=== PATIENT | male | born 1985 | race Hispanic/Latino ===

== ENCOUNTER 2018-05-15 02:42 | Emergency (ER) | payer MEDICAID, OTHER ==
[2018-05-15 02:54] VITALS: BP 141/86
[2018-05-15] MEDS ORDERED: NACL 0.9% 1000 ML 1,000 ML IV ONE (03:00)
[2018-05-15] MEDS ORDERED: CLEOCIN 900 MG/50 mL 900 MG/50 ML BAG IV ONE (03:00)
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
[2018-05-15 03:24] LABS: Basophils # (Auto) 0.1 K/mm3 (0.0-0.1); Basophils % (Auto) 0.5 % (0.0-1.8); Eosinophils # (Auto) 0.1 K/mm3 (0.0-0.4); Eosinophils % (Auto) 0.5 % (0.0-4.3); Hematocrit 46.7 % (35.5-45.6); Hemoglobin 15.8 gm/dl (11.8-15.2); Lymphocytes % (Auto) 11.6 % (13.4-35.0); Mean Corpuscular HGB Conc 34 % (32-34); Mean Corpuscular Volume 94 fl (84-94); Monocytes # (Auto) 1.6 K/mm3 (0.0-0.8); Monocytes % (Auto) 8.9 % (0.0-7.3); Platelet Count 294 K/mm3 (140-440); Red Cell Distribution Width 13.2 % (13.2-15.2)
[2018-05-15 03:43] LABS: BUN/Creatinine Ratio 13; Blood Urea Nitrogen 10 mg/dL (9-20); Calcium 9.4 mg/dL (8.4-10.2); Hemolysis Index 10
--- NOTE | 2018-05-15 03:44 | XRay Report ---
FINAL REPORT PROCEDURE: XR ELBOW 3+V RT TECHNIQUE: RIGHT elbow radiographs, including AP, lateral, and oblique views. CPT 22651 HISTORY: pain swelling fever COMPARISON: No prior studies are available for comparison. FINDINGS: Fracture (s) and/or Dislocation(s): None . Alignment: Normal . Joint space(s): Normal . Soft tissues: Normal . Bone mineralization: Normal . Foreign bodies: None . IMPRESSION: Normal Examination
[2018-05-15] MEDS ORDERED: TORADOL IV ONE (04:09)
== END 2018-05-15 04:50 | disposition left against medical advice (07) ==
LOC: ED 02:42
DX: L02.413 Cutaneous abscess of right upper limb (principal); F17.200 Nicotine dependence, unspecified, uncomplicated
CPT/HCPCS: 10060; 36415; 73080; 80048; 85025; 86140; 87040; 96365; 96375; 99284; J1885; J7030

== ENCOUNTER 2021-06-01 12:50 | Inpatient (IN) | payer SELFPAY ==
[~2021-06-01 12:50] MED LIST: ETOMIDATE 20 MG/10 ML INJ IV ONE; MIDAZOLAM 5 MG/5 ML INJ MDV IV ONE; ROCURONIUM 50 MG/5 ML INJ IV ONE; SUCCINYLCHOLINE CHLORIDE 200 MG/10 ML INJ MDV ONE
[2021-06-01] MEDS ORDERED: ZIPRASIDONE MESYLATE 20 MG VIAL IM ONE ×3 (13:00→18:10)
[2021-06-01] MEDS ORDERED: LORazepam 2 MG/ML VIAL ONE (13:02)
[2021-06-01] MEDS ORDERED: diphenhydrAMINE 50 MG/ML VIAL ONE (13:10)
[2021-06-01] MEDS ORDERED: SODIUM CHLORIDE 0.9% 1000 ML 1,000 ML IV ONE ×2 (13:14→13:47)
[2021-06-01] MEDS ORDERED: ETOMIDATE 20 MG/10 ML INJ IV ONE (13:24)
[2021-06-01] MEDS ORDERED: MIDAZOLAM 5 MG/5 ML INJ MDV IV NR (13:27)
[2021-06-01] MEDS ORDERED: SUCCINYLCHOLINE CHLORIDE 200 MG/10 ML INJ MDV IV ONE (13:30)
[2021-06-01] MEDS ORDERED: MINERAL OIL/PETROLATUM, WHITE OPHTH OINT 3.5 GM OU PRN (13:45)
[2021-06-01] MEDS ORDERED: LIP THERAPY VASELINE TP PRN (13:45)
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
[2021-06-01] MEDS ORDERED: diphenhydrAMINE 50 MG/ML VIAL IV ONE (14:10)
[2021-06-01] MEDS ORDERED: LORazepam 2 MG/ML VIAL IV ONE (14:10)
[2021-06-01 14:41] LABS: Basophils # (Auto) 0.1 K/mm3 (0.0-0.1); Basophils % (Auto) 0.5 % (0.0-1.8); Eosinophils # (Auto) 0.1 K/mm3 (0.0-0.4); Eosinophils % (Auto) 0.5 % (0.0-4.3); Hematocrit 43.4 % (35.5-45.6); Hemoglobin 14.4 gm/dl (11.8-15.2); Lymphocytes % (Auto) 16.9 % (13.4-35.0); Mean Corpuscular HGB Conc 33 % (32-34); Mean Corpuscular Volume 93 fl (84-94); Monocytes # (Auto) 0.8 K/mm3 (0.0-0.8); Monocytes % (Auto) 6.4 % (0.0-7.3); Platelet Count 261 K/mm3 (140-440); Red Blood Count 4.67 M/mm3 (3.65-5.03); Red Cell Distribution Width 13.9 % (13.2-15.2)
[2021-06-01 14:59] LABS: BUN/Creatinine Ratio 18; Blood Urea Nitrogen 18 mg/dL (9-20); Calcium 9.3 mg/dL (8.4-10.2); Hemolysis Index 3
[2021-06-01 15:03] LABS: Albumin 4.9 g/dL (3.9-5); Bilirubin,Direct 0.3 mg/dL (0-0.2)
[2021-06-01] MEDS: FAMOTIDINE 20 MG/2 ML INJ IV SCH ×2 (15:05→22:12)
[2021-06-01 15:08] LABS: ABG Base Excess -3.6 mmol/L (-2.0-3.0); ABG HCO3 22.4 mmol/L (20.0-26.0); ABG Methemoglobin 0.5 % (0.0-1.5); ABG Oxygen Saturation 99.6 % (95.0-99.0); ABG PCO2 43.8 mm Hg; ABG PH 7.327 pH Units (7.350-7.450)
[2021-06-01 15:14] LABS: ABG PO2 464.3 mm Hg (80.0-90.0)
[2021-06-01 15:15] LABS: Bilirubin,Urine NEG (Negative); Blood,Urine NEG (Negative); Color,Urine Yellow (Yellow); Hyaline Casts,Urine 1 /LPF; Mucus,Urine 1+ /HPF
[2021-06-01 15:22] LABS: Benzodiazepines Screen,Urine Negative; Cannabinoid Screen,Urine Negative; Cocaine Screen,Urine Negative; Methadone Screen,Urine Negative; Opiate Screen,Urine Negative
[2021-06-01 15:37] LABS: Amphetamine Screen,Urine Positive
--- NOTE | 2021-06-01 15:49 | History and Physical Report ---
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 Patient is intubated and on ventilatory support at the time my evaluation and is unable to provide history. Patient history taken EMS staff, as well as ED staff, and [employer]. Patient was found down and unresponsive in his vehicle by [employer] and was subsequent transported to [facility] for further care and evaluation of the aforementioned symptoms. The patient was seen and evaluated emergency department. All lab and imaging studies reviewed. Patient was found to be encephalopathic with acute hypoxemic respiratory failure and deemed unable to protect his airway and was subsequently intubated in the emergency department for airway protection. No further history is obtainable. No prior admission for review. All medication listed at time of admission has been reconciled. No reports of fever, chills, chest pain, palpitation or productive cough, skin rash or recent contact, known exposure to COVID-19. Critical care team consulted in ED. Past History Past Medical History: other (See HPI) Past Surgical History: bowel surgery Social history: single, smoking Family history: no significant family history, other (Reviewed) Medications and Allergies Allergies Allergy/AdvReac Type Severity Reaction Status Date / Time No Known Allergies Allergy Verified 06/01/21 12:54 Home Medications Medication Instructions Recorded Confirmed Last Taken Type Clindamycin [Clindamycin CAP] 300 mg PO Q6H 10 Days #40 capsule 05/15/18 Unknown Rx traMADoL [Ultram] 50 mg PO Q6HR PRN #12 tablet 05/15/18 Unknown Rx Active Meds: Active Medications Famotidine (Famotidine 20 Mg/2 Ml Inj) 20 mg IV BID HEATHER Last Admin: 06/01/21 15:05 Dose: 20 mg Hydrophilic Ointment (Lip Therapy Vaseline) 1 applic TP Q2HR PRN PRN Reason: Dry Lips Propofol (Diprivan 10 Mg/Ml) 1,000 mg in 100 mls @ 1.905 mls/hr IV TITR HEATHER; Protocol Last Titration: 06/01/21 15:05 Dose: 25 mcg/kg/min, 9.525 mls/hr MIDAZOLAM/NS Drip 100mg/100ml (Midazolam/Ns Drip 100mg/100ml) 100 mg in 100 mls @ 1 mls/hr IV TITR HEATHER; Protocol Midazolam HCl (Midazolam 5 Mg/5 Ml Inj Mdv) 5 mg IV ONCE NR Stop: 06/02/21 13:26 Last Admin: 06/01/21 13:27 Dose: 5 mg Multi-Ingred Cream/Lotion/Oil/Oint (Mineral Oil/Petrolatum, White Ophth Oint 3.5 Gm) 1 applic OU Q4HR PRN PRN Reason: Dry Eye(s) Senna/Docusate Sodium (Sennosides/Docusate Sodium 8.6/50 Mg Tab) 1 tab FEEDTUBE BID HEATHER Review of Systems ROS unobtainable: due to endotracheal tube, due to mental status Exam - Constitutional Vitals: Temp Pulse Resp BP Pulse Ox 105 H 21 121/87 100 06/01/21 14:02 06/01/21 15:29 06/01/21 15:29 06/01/21 15:29 General appearance: Present: mild distress - EENT Eyes: Present: miosis ENT: hearing decreased - Neck Neck: Present: supple, normal ROM - Respiratory Respiratory: bilateral: diminished - Cardiovascular Heart Sounds: Present: S1 & S2. Absent: rub, click - Extremities Extremities: pulses symmetrical, No edema Peripheral Pulses: within normal limits - Abdominal General gastrointestinal: Present: soft, non-tender, non-distended, normal bowel sounds Male genitourinary: Present: normal - Integumentary Integumentary: Present: dry, clammy, decreased turgor - Musculoskeletal Musculoskeletal: generalized weakness - Psychiatric Psychiatric: no appropriate mood/affect, no intact judgment & insight, no memory intact, agitated - Neurologic Neurologic: CNII-XII intact, no focal deficits, moves all extremities, no gait normal Results - Labs CBC & Chem 7: 06/01/21 14:23 06/01/21 14:23 Labs: Abnormal lab results 06/01/21 06/01/21 06/01/21 Range/Units 13:56 14:23 14:23 WBC 12.1 H (4.5-11.0) K/mm3 Seg Neutrophils % 75.7 H (40.0-70.0) % Seg Neutrophils # 9.1 H (1.8-7.7) K/mm3 ABG pH 7.327 L (7.350-7.450) pH Units ABG pO2 464.3 H (80.0-90.0) mm Hg ABG O2 Saturation 99.6 H (95.0-99.0) % ABG Base Excess -3.6 L (-2.0-3.0) mmol/L Carbon Dioxide 21 L (22-30) mmol/L Glucose 106 H (75-100) mg/dL Direct Bilirubin (0-0.2) mg/dL AST (5-40) units/L ALT (7-56) units/L Salicylates (2.8-20.0) mg/dL Acetaminophen (10.0-30.0) ug/mL 06/01/21 06/01/21 06/01/21 Range/Units 14:23 14:23 14:23 WBC (4.5-11.0) K/mm3 Seg Neutrophils % (40.0-70.0) % Seg Neutrophils # (1.8-7.7) K/mm3 ABG pH (7.350-7.450) pH Units ABG pO2 (80.0-90.0) mm Hg ABG O2 Saturation (95.0-99.0) % ABG Base Excess (-2.0-3.0) mmol/L Carbon Dioxide (22-30) mmol/L Glucose (75-100) mg/dL Direct Bilirubin 0.3 H (0-0.2) mg/dL AST 80 H (5-40) units/L ALT 159 H (7-56) units/L Salicylates < 0.3 L (2.8-20.0) mg/dL Acetaminophen 5.0 L (10.0-30.0) ug/mL Assessment and Plan - Patient Problems (1) Acute respiratory failure Current Visit: Yes Status: Acute Plan to address problem: Patient intubated and on ventilatory support. Wean vent as tolerated, sedation holiday in a.m., spontaneous breathing trial in a.m. Critical care team consulted. The high probability of a clinically significant, sudden or life threatening deterioration of the [neuro, pulmonary] system(s) required my full and direct attention, intervention and personal management. The aggregate critical care time was [65] minutes. This time is in addition to time spent performing reported procedures but includes the following: [x] Data Review and interpretation [x] Patient assessment and monitoring of vital signs [x] Documentation [x] Medication orders and management (2) Metabolic encephalopathy Current Visit: Yes Status: Acute Plan to address problem: CT head, neuro check, seizure precaution, aspiration precautions, supportive care. (3) Methamphetamine intoxication Current Visit: Yes Status: Acute Plan to address problem: Supportive care, IV fluid resuscitation therapy, continue medical management. (4) DVT prophylaxis Current Visit: Yes Status: Acute Plan to address problem: SCD to bilateral lower extremities while in bed (5) Advance care planning Current Visit: Yes Status: Acute Plan to address problem: Disease education data, care plan discussed, diagnoses discussed, prognosis discussed, patient is full code, +30 minutes.
[2021-06-01] MEDS ORDERED: MORPHINE 2 MG/1 ML INJ IV PRN (15:52)
[2021-06-01] MEDS ORDERED: HYDROmorphone 1 MG/1 ML INJ IV PRN (15:52)
[2021-06-01] MEDS ORDERED: ACETAMINOPHEN 650 MG RECT SUPP PR PRN (15:52)
[2021-06-01] MEDS ORDERED: MIDAZOLAM/NS Drip 100mg/100ml 100 MG/100 ML BAG IV SCH (16:00)
--- NOTE | 2021-06-01 16:31 | XRay Report ---
CHEST 1 VIEW 1525 hours INDICATION: ETT placement. COMPARISON: None FINDINGS: Support devices: Endotracheal tube is in adequate position terminating 3.2 cm superior to the john. The nasogastric tube terminates in the left lower lobe bronchus. Replacement is recommended. Heart: Within normal limits. Lungs/Pleura: No acute air space or interstitial disease. Additional findings: None. IMPRESSION: Adequate placement of the endotracheal tube. The nasogastric tube terminates in the left lower lobe bronchus. Replacement is recommended. ABDOMEN 1 VIEW(S) 1545 hours INDICATION / CLINICAL INFORMATION: ETT placement. COMPARISON: None available. FINDINGS: TUBES / LINES: The nasogastric tube has been repositioned and is now coiled in the fundus of the stom ach with the tip near the GE junction. BOWEL GAS PATTERN: No significant abnormality. FREE AIR / EXTRALUMINAL GAS: None seen. ADDITIONAL FINDINGS: No significant additional findings. IMPRESSION: The nasogastric tube has been repositioned and now terminates in the fundus of the stomach. No acute process in the abdomen. Signer Name: Ramone Grace Jr, MD Signed: 06/01/2021 4:27 PM Workstation Name: [email or web address] [email or web address]
--- NOTE | 2021-06-01 16:47 | Cat Scan Report ---
CT BRAIN: 06/01/2021 INDICATION / CLINICAL INFORMATION: AMS. COMPARISON: None available. FINDINGS: BRAIN/INTRACRANIAL STRUCTURES: Unenhanced CT images of the brain demonstrate no evidence of acute abn ormality. Ventricles and sulci are normal in size and shape. There is no evidence of acute large vessel territory ischemic injury, hemorrhage, or mass. There are no abnormal extra-axial fluid collections. EXTRACRANIAL STRUCTURES: Unremarkable. IMPRESSION: No acute abnormality. All CT scans at this location are performed using dose reduction to ALARA by means of automated expos ure control. Signer Name: Julien Rainey MD Signed: 06/01/2021 4:42 PM Workstation Name: [id number]
[2021-06-01] MEDS: SENNOSIDES/DOCUSATE SODIUM 8.6/50 MG TAB FEEDTUBE SCH ×2 (19:11→22:12)
[2021-06-02 04:58] LABS: Basophils # (Auto) 0.1 K/mm3 (0.0-0.1); Basophils % (Auto) 0.5 % (0.0-1.8); Eosinophils # (Auto) 0.1 K/mm3 (0.0-0.4); Eosinophils % (Auto) 0.9 % (0.0-4.3); Hematocrit 43.1 % (35.5-45.6); Hemoglobin 14.3 gm/dl (11.8-15.2); Lymphocytes # (Auto) 2.9 K/mm3 (1.2-5.4); Mean Corpuscular HGB Conc 33 % (32-34); Mean Corpuscular Volume 93 fl (84-94); Monocytes # (Auto) 1.3 K/mm3 (0.0-0.8); Monocytes % (Auto) 11.4 % (0.0-7.3); Platelet Count 241 K/mm3 (140-440); Red Blood Count 4.65 M/mm3 (3.65-5.03); Red Cell Distribution Width 14.3 % (13.2-15.2)
[2021-06-02 05:09] LABS: BUN/Creatinine Ratio 18; Blood Urea Nitrogen 14 mg/dL (9-20); Calcium 8.5 mg/dL (8.4-10.2); Hemolysis Index 14
[2021-06-02 05:42] LABS: ABG Base Excess -2.1 mmol/L (-2.0-3.0); ABG HCO3 21.9 mmol/L (20.0-26.0); ABG Methemoglobin 0.6 % (0.0-1.5); ABG Oxygen Saturation 99.1 % (95.0-99.0); ABG PCO2 35.3 mm Hg; ABG PH 7.411 pH Units (7.350-7.450); ABG PO2 179.6 mm Hg (80.0-90.0)
[2021-06-02] MEDS ORDERED: SODIUM CHLORIDE 0.9% 250ML 250 ML IV ONE (06:13)
[2021-06-02] MEDS ORDERED: SODIUM CHLORIDE 0.9% 1000 ML 1,000 ML IV ONE (06:14)
[2021-06-02] MEDS ORDERED: HALOPERIDOL LACTATE 5 MG/1 ML INJ ONE (09:29)
[2021-06-02] MEDS ORDERED: HALOPERIDOL LACTATE 5 MG/1 ML INJ IV ONE (09:51)
[2021-06-02] MEDS: SENNOSIDES/DOCUSATE SODIUM 8.6/50 MG TAB FEEDTUBE SCH (10:11)
--- NOTE | 2021-06-02 10:12 | Electrocardiograph Report ---
[facility] Test Date: 2021-06-01 Test Time: 17:15:16 Pat Name: ROSA HYDE Department: Room: [place] [address] Gender: M Manager Revenue: SUN : 1985 Requested By: CHASITY GONZALEZ Order Number: [id number] Reading MD: Tiffanie Moreno Measurements Intervals [place] Rate: 83 P: 63 UT: 110 QRS: 74 QRSD: 87 T: 43 QT: 395 QTc: 464 Interpretive Statements Sinus rhythm No previous ECG available for comparison Electronically Signed On 06-02-2021 10:12:33 EST by Tiffanie Moreno
[2021-06-02] MEDS: FAMOTIDINE 20 MG/2 ML INJ IV SCH (10:30)
--- NOTE | 2021-06-02 12:19 | Progress Note ---
Assessment and Plan Assessment and plan: 35 YO Male with Methamphetamine Dependence, Nicotine Dependence presents ED for evaluation. Patient is intubated and on ventilatory support at the time my evaluation and is unable to provide history. Patient history taken EMS staff, as well as ED staff, and [facility] [employer]. Patient was found down and unresponsive in his vehicle by [facility] [employer] and was subsequent transported to [facility] for further care and evaluation of the aforementioned symptoms. The patient was seen and evaluated emergency department. All lab and imaging studies reviewed. Patient was found to be encephalopathic with acute hypoxemic respiratory failure and deemed unable to protect his airway and was subsequently intubated in the emergency department for airway protection. No further history is obtainable. No prior admission for review. All medication listed at time of admission has been reconciled. No reports of fever, chills, chest pain, palpitation or productive cough, skin rash or recent contact, known exposure to COVID-19. Critical care team consulted in ED. Acute hypoxic respiratory failure secondary to stupor Metabolic encephalopathy Methamphetamine intoxication Metabolic acidosis Systemic inflammatory response syndrome without organ dysfunction Hypoglycemia Mild elevated Liver Enzymes Plan We will begin weaning process from the ventilator. CT of the head was unremarkable Repeat KUB shows repositioning of NG tube with appropriate placement Continue empiric antibiotic coverage for possible suspected aspiration Counseling on substance abuse 1 more awake Start on D5 NS, and if unable to extubate will start tube feed We will check thyroid studies DVT and GI prophylaxis Plan Will Discuss with Pulmonary physician The high probability of a clinically significant, sudden or life threatening deterioration of the [neuro, pulmonary] system(s) required my full and direct attention, intervention and personal management. The aggregate critical care time was [35] minutes. This time is in addition to time spent performing reported procedures but includes the following: [x] Data Review and interpretation [x] Patient assessment and monitoring of vital signs [x] Documentation [x] Medication orders and management History Interval history: Patient seen and examined this morning remains on the ventilator was agitated initially requiring Haldol. Hospitalist Physical - Physical exam Narrative exam: VITAL SIGNS: Reviewed. GENERAL: The patient appears normally developed, intubated, Disheveled, Vital signs as documented. HEAD: No signs of head trauma. EYES: Pupils are equal. Extraocular motions intact. EARS: Hearing grossly intact. MOUTH: Oropharynx is normal. ETT tube NECK: No adenopathy, no JVD. CHEST: Chest with clear breath sounds bilaterally. No wheezes, rales, or rhonchi. CARDIAC: Regular rate and rhythm. S1 and S2, without murmurs, gallops, or rubs. VASCULAR: No Edema. Peripheral pulses normal and equal in all extremities. ABDOMEN: Soft, non tender and non distended. No rebound or guarding, and no masses palpated. Bowel Sounds normal. MUSCULOSKELETAL: Good range of motion of all major joints. Extremities without clubbing, cyanosis or edema. NEUROLOGIC EXAM: sedated, No focal sensory or strength deficits. PSYCHIATRIC: Mood unable to examine SKIN: detail exam as documented in skin assessment - Constitutional Vitals: Temp Pulse Resp BP Pulse Ox 97.5 F L 103 H 20 93/43 98 06/01/21 19:20 06/02/21 10:00 06/02/21 10:00 06/02/21 10:00 06/02/21 10:00 General appearance: Present: mild distress Results - Labs CBC & Chem 7: 06/02/21 04:38 06/02/21 04:38 Labs: Laboratory Last Values WBC 11.2 K/mm3 (4.5-11.0) H 06/02/21 04:38 RBC 4.65 M/mm3 (3.65-5.03) 06/02/21 04:38 Hgb 14.3 gm/dl (11.8-15.2) 06/02/21 04:38 Hct 43.1 % (35.5-45.6) 06/02/21 04:38 MCV 93 fl (84-94) 06/02/21 04:38 MCH 31 pg (28-32) 06/02/21 04:38 MCHC 33 % (32-34) 06/02/21 04:38 RDW 14.3 % (13.2-15.2) 06/02/21 04:38 Plt Count 241 K/mm3 (140-440) 06/02/21 04:38 Lymph % (Auto) 26.0 % (13.4-35.0) 06/02/21 04:38 [place] % (Auto) 11.4 % (0.0-7.3) H 06/02/21 04:38 Eos % (Auto) 0.9 % (0.0-4.3) 06/02/21 04:38 Baso % (Auto) 0.5 % (0.0-1.8) 06/02/21 04:38 Lymph # (Auto) 2.9 K/mm3 (1.2-5.4) 06/02/21 04:38 [place] # (Auto) 1.3 K/mm3 (0.0-0.8) H 06/02/21 04:38 Eos # (Auto) 0.1 K/mm3 (0.0-0.4) 06/02/21 04:38 Baso # (Auto) 0.1 K/mm3 (0.0-0.1) 06/02/21 04:38 Seg Neutrophils % 61.2 % (40.0-70.0) 06/02/21 04:38 Seg Neutrophils # 6.9 K/mm3 (1.8-7.7) 06/02/21 04:38 ABG pH 7.411 pH Units (7.350-7.450) 06/02/21 05:10 ABG pCO2 35.3 mm Hg 06/02/21 05:10 ABG pO2 179.6 mm Hg (80.0-90.0) H 06/02/21 05:10 ABG HCO3 21.9 mmol/L (20.0-26.0) 06/02/21 05:10 ABG O2 Saturation 99.1 % (95.0-99.0) H 06/02/21 05:10 ABG O2 Content 20.1 (0.0-44) 06/02/21 05:10 ABG Base Excess -2.1 mmol/L (-2.0-3.0) L 06/02/21 05:10 ABG Hemoglobin 14.4 gm/dl (14.0-18.0) 06/02/21 05:10 ABG Carboxyhemoglobin 1.1 % (0.0-5.0) 06/02/21 05:10 ABG Methemoglobin 0.6 % (0.0-1.5) 06/02/21 05:10 Oxyhemoglobin 97.5 % (95.0-99.0) 06/02/21 05:10 FiO2 35 % 06/02/21 05:10 Sodium 143 mmol/L (137-145) 06/02/21 04:38 Potassium 3.8 mmol/L (3.6-5.0) 06/02/21 04:38 Chloride 108.7 mmol/L (98-107) H 06/02/21 04:38 Carbon Dioxide 19 mmol/L (22-30) L 06/02/21 04:38 Anion Gap 19 mmol/L 06/02/21 04:38 BUN 14 mg/dL (9-20) 06/02/21 04:38 Creatinine 0.8 mg/dL (0.8-1.3) 06/02/21 04:38 Estimated GFR > 60 ml/min 06/02/21 04:38 BUN/Creatinine Ratio 18 % 06/02/21 04:38 Glucose 72 mg/dL (75-100) L 06/02/21 04:38 Calcium 8.5 mg/dL (8.4-10.2) 06/02/21 04:38 Total Bilirubin 0.60 mg/dL (0.1-1.2) 06/01/21 14:23 Direct Bilirubin 0.3 mg/dL (0-0.2) H 06/01/21 14:23 Indirect Bilirubin 0.3 mg/dL 06/01/21 14:23 AST 80 units/L (5-40) H 06/01/21 14:23 ALT 159 units/L (7-56) H 06/01/21 14:23 Alkaline Phosphatase 129 units/L (35-129) 06/01/21 14:23 Ammonia 29.0 umol/L (25-60) 06/01/21 14:23 Total Protein 7.6 g/dL (6.3-8.2) 06/01/21 14:23 Albumin 4.9 g/dL (3.9-5) 06/01/21 14:23 Albumin/Globulin Ratio 1.8 % 06/01/21 14:23 Urine Color Yellow (Yellow) 06/01/21 Unknown Urine Turbidity Slightly-cloudy (Clear) 06/01/21 Unknown Urine pH 5.0 (5.0-7.0) 06/01/21 Unknown Ur Specific [place] 1.026 (1.003-1.030) 06/01/21 Unknown Urine Protein 30 mg/dl mg/dL (Negative) 06/01/21 Unknown Urine Glucose (UA) Neg mg/dL (Negative) 06/01/21 Unknown Urine Ketones 20 mg/dL (Negative) 06/01/21 Unknown Urine Blood Neg (Negative) 06/01/21 Unknown Urine Nitrite Neg (Negative) 06/01/21 Unknown Urine Bilirubin Neg (Negative) 06/01/21 Unknown Urine Urobilinogen 2.0 mg/dL (<2.0) 06/01/21 Unknown Ur Leukocyte Esterase Neg (Negative) 06/01/21 Unknown Urine WBC (Auto) 4.0 /HPF (0.0-6.0) 06/01/21 Unknown Urine RBC (Auto) 1.0 /HPF (0.0-6.0) 06/01/21 Unknown U Epithel Cells (Auto) < 1.0 /HPF (0-13.0) 06/01/21 Unknown Hyaline Casts 1 /LPF 06/01/21 Unknown Urine Mucus 1+ /HPF 06/01/21 Unknown Salicylates < 0.3 mg/dL (2.8-20.0) L 06/01/21 14:23 Urine Opiates Screen Negative 06/01/21 Unknown Urine Methadone Screen Negative 06/01/21 Unknown Acetaminophen 5.0 ug/mL (10.0-30.0) L 06/01/21 14:23 Ur Barbiturates Screen Negative 06/01/21 Unknown Ur Phencyclidine Scrn Negative 06/01/21 Unknown Ur Amphetamines Screen Positive 06/01/21 Unknown U Benzodiazepines Scrn Negative 06/01/21 Unknown Urine Cocaine Screen Negative 06/01/21 Unknown U Marijuana (THC) Screen Negative 06/01/21 Unknown Drugs of Abuse Note Disclamer 06/01/21 Unknown Plasma/Serum Alcohol < 0.01 % (0-0.07) 06/01/21 14:23 Active Medications - Current Medications Current Medications: Generic Name Dose Route Start Last Admin Trade Name Freq PRN Reason Stop Dose Admin Acetaminophen 650 mg 06/01/21 15:52 Acetaminophen 650 Mg Rect Supp DC Q6H PRN Pain MILD(1-3)/Fever >100.5/ESPINO Famotidine 20 mg 06/01/21 14:00 06/02/21 10:30 Famotidine 20 Mg/2 Ml Inj IV 20 mg BID HEATHER Administration Hydromorphone HCl 0.5 mg 06/01/21 15:52 Hydromorphone 1 Mg/1 Ml Inj IV Q3H PRN Pain , Severe (7-10) Hydrophilic Ointment 1 applic 06/01/21 13:45 Lip Therapy Vaseline TP Q2HR PRN Dry Lips Propofol 1,000 mg in 100 mls @ 1.905 mls/hr 06/01/21 14:00 06/02/21 10:31 Diprivan 10 Mg/Ml IV 30 mcg/kg/min TITR HEATHER 11.431 mls/hr Titration Protocol 5 MCG/KG/MIN MIDAZOLAM/NS Drip 100mg/100ml 100 mg in 100 mls @ 1 mls/hr 06/01/21 16:00 06/02/21 05:00 Midazolam/Ns Drip 100mg/100ml IV 4 mg/hr TITR HEATHER 4 mls/hr Titration Protocol 1 MG/HR Sodium Chloride 1,000 mls @ 75 mls/hr 06/02/21 06:14 06/02/21 07:00 Nacl 0.9% 1000 Ml IV 06/02/21 19:33 75 mls/hr ONCE ONE Administration Midazolam HCl 5 mg 06/01/21 13:27 06/01/21 13:27 Midazolam 5 Mg/5 Ml Inj Mdv IV 06/02/21 13:26 5 mg ONCE NR Administration Morphine Sulfate 2 mg 06/01/21 15:52 Morphine 2 Mg/1 Ml Inj IV Q4H PRN Pain, Moderate (4-6) Multi-Ingred Cream/Lotion/Oil/Oint 1 applic 06/01/21 13:45 Mineral Oil/Petrolatum, White Ophth Oint 3.5 Gm OU Q4HR PRN Dry Eye(s) Senna/Docusate Sodium 1 tab 06/01/21 14:00 06/02/21 10:11 Sennosides/Docusate Sodium 8.6/50 Mg Tab FEEDTUBE Not Given BID HEATHER Sodium Chloride 10 ml 06/01/21 22:00 06/02/21 10:13 Sodium Chloride 0.9% 10 Ml Flush Syringe IV 10 ml BID HEATHER Administration Sodium Chloride 10 ml 06/01/21 15:52 Sodium Chloride 0.9% 10 Ml Flush Syringe IV PRN PRN LINE FLUSH
[2021-06-02] MEDS ORDERED: D5W/0.9% NACL 1,000 ML IV SCH (13:00)
--- NOTE | 2021-06-02 13:57 | Consultation ---
History of Present Illness Consult date: 06/02/21 Requesting physician: SUSY DEGROOT Reason for consult: other (Vent management) History of present illness: History per medical records, patient is intubated and sedated in the ED 35 YO Male with Methamphetamine Dependence, Nicotine Dependence presents ED for evaluation. Patient is intubated and on ventilatory support at the time my evaluation and is unable to provide history. Patient history taken EMS staff, as well as ED staff, and [facility] [employer] [facility]. Patient was found down and unresponsive in his vehicle by [facility] [employer] and was subsequent transported to [facility] for further care and evaluation of the aforementioned symptoms. The patient was seen and evaluated emergency depar tment. All lab and imaging studies reviewed. Patient was found to be encephalopathic with acute hypoxemic respiratory failure and deemed unable to protect his airway and was subsequently intubated in the emergency department for airway protection. No further history is obtainable. No prior admission for review. All medication listed at time of admission has been reconciled. No reports of fever, chills, chest pain, palpitation or productive cough, skin rash or recent contact, known exposure to COVID-19. Critical care team consulted Patient seen and examined. Orally intubated to [facility], sedated on Propofol, Midazolam and Fentanyl Vitals, labs, medications, chart and imaging reviewed. No adverse overnight events, became agitated when sedation was held and the patient placed on SBT. Sedation was restarted. No fevers, no diarrhea overnight. Discussed with respiratory and nursing care teams Past History Past Medical History: other (See HPI) Past Surgical History: bowel surgery Social history: single, smoking Family history: no significant family history, other (Reviewed) Medications and Allergies Allergies Allergy/AdvReac Type Severity Reaction Status Date / Time No Known Allergies Allergy Verified 06/01/21 12:54 Home Medications Medication Instructions Recorded Confirmed Last Taken Type Clindamycin [Clindamycin CAP] 300 mg PO Q6H 10 Days #40 capsule 05/15/18 Unknown Rx traMADoL [Ultram] 50 mg PO Q6HR PRN #12 tablet 05/15/18 Unknown Rx Active Meds: Active Medications Acetaminophen (Acetaminophen 650 Mg Rect Supp) 650 mg [place] Q6H PRN PRN Reason: Pain MILD(1-3)/Fever >100.5/ESPINO Famotidine (Famotidine 20 Mg/2 Ml Inj) 20 mg IV BID HEATHER Last Admin: 06/02/21 10:30 Dose: 20 mg Hydromorphone HCl (Hydromorphone 1 Mg/1 Ml Inj) 0.5 mg IV Q3H PRN PRN Reason: Pain , Severe (7-10) Hydrophilic Ointment (Lip Therapy Vaseline) 1 applic TP Q2HR PRN PRN Reason: Dry Lips Propofol (Diprivan 10 Mg/Ml) 1,000 mg in 100 mls @ 1.905 mls/hr IV TITR HEATHER; Protocol Last Titration: 06/02/21 12:00 Dose: 0 mcg/kg/min, 0 mls/hr MIDAZOLAM/NS Drip 100mg/100ml (Midazolam/Ns Drip 100mg/100ml) 100 mg in 100 mls @ 1 mls/hr IV TITR HEATHER; Protocol Last Titration: 06/02/21 10:30 Dose: 0 mg/hr, 0 mls/hr Sodium Chloride (Nacl 0.9% 1000 Ml) 1,000 mls @ 75 mls/hr IV ONCE ONE Stop: 06/02/21 19:33 Last Admin: 06/02/21 07:00 Dose: 75 mls/hr Dextrose/Sodium Chloride (D5ns) 1,000 mls @ 75 mls/hr IV DIRECT HEATHER Morphine Sulfate (Morphine 2 Mg/1 Ml Inj) 2 mg IV Q4H PRN PRN Reason: Pain, Moderate (4-6) Multi-Ingred Cream/Lotion/Oil/Oint (Mineral Oil/Petrolatum, White Ophth Oint 3.5 Gm) 1 applic OU Q4HR PRN PRN Reason: Dry Eye(s) Senna/Docusate Sodium (Sennosides/Docusate Sodium 8.6/50 Mg Tab) 1 tab FEEDTUBE BID [facility] Last Admin: 06/02/21 10:11 Dose: Not Given Sodium Chloride (Sodium Chloride 0.9% 10 Ml Flush Syringe) 10 ml IV BID [facility] Last Admin: 06/02/21 10:13 Dose: 10 ml Sodium Chloride (Sodium Chloride 0.9% 10 Ml Flush Syringe) 10 ml IV PRN PRN PRN Reason: LINE FLUSH Review of Systems ROS unobtainable: due to endotracheal tube, due to mental status Physical Examination Vital signs: Vital Signs Pulse Ox 98 06/01/21 12:54 General appearance: no acute distress, other (heavily tatooed, orally intubated to MVS) Eyes: non-icteric ENT: oropharynx moist Neck: supple, no lymphadenopathy, no JVD Effort: normal Ascultation: Bilateral: clear, diminished breath sounds Cardiovascular: regular rate and rhythm, other (S1,S2) Gastrointestinal: normoactive bowel sounds, soft, non-tender Integumentary: normal Extremities: no cyanosis, no edema, pink and warm non-focal exam (moves all extremities to painful stimuli), pupils equal and round, unable to assess Results - Laboratory Findings CBC and BMP: 06/02/21 04:38 06/02/21 04:38 ABG ABG pH 7.411 pH Units (7.350-7.450) 06/02/21 05:10 ABG pCO2 35.3 mm Hg 06/02/21 05:10 ABG pO2 179.6 mm Hg (80.0-90.0) H 06/02/21 05:10 ABG O2 Saturation 99.1 % (95.0-99.0) H 06/02/21 05:10 Abnormal lab findings: Abnormal Labs 06/01/21 06/01/21 06/01/21 13:56 14:23 14:23 WBC 12.1 H [place] % (Auto) [place] # (Auto) Seg Neutrophils % 75.7 H Seg Neutrophils # 9.1 H ABG pH 7.327 L ABG pO2 464.3 H ABG O2 Saturation 99.6 H ABG Base Excess -3.6 L Chloride Carbon Dioxide 21 L Glucose 106 H Direct Bilirubin AST ALT Salicylates Acetaminophen 06/01/21 06/01/21 06/01/21 14:23 14:23 14:23 WBC [place] % (Auto) [place] # (Auto) Seg Neutrophils % Seg Neutrophils # ABG pH ABG pO2 ABG O2 Saturation ABG Base Excess Chloride Carbon Dioxide Glucose Direct Bilirubin 0.3 H AST 80 H ALT 159 H Salicylates < 0.3 L Acetaminophen 5.0 L 06/02/21 06/02/21 06/02/21 04:38 04:38 05:10 WBC 11.2 H [place] % (Auto) 11.4 H [place] # (Auto) 1.3 H Seg Neutrophils % Seg Neutrophils # ABG pH ABG pO2 179.6 H ABG O2 Saturation 99.1 H ABG Base Excess -2.1 L Chloride 108.7 H Carbon Dioxide 19 L Glucose 72 L Direct Bilirubin AST ALT Salicylates Acetaminophen - Diagnostic Findings Chest x-ray: image reviewed Additional studies: KUB showed malposition of enteric tube in the left lung Follow up imaging shows proper positioning Assessment and Plan Acute respiratory failure on MVS Metabolic toxic encephalopathy Methamphetamine intoxication Metabolic acidosis Hypoglycemia Mild elevated Liver Enzymes Stop sedation, place him on SBT If he tolerates it plan is to liberate from MVS -Titrate supplemental oxygen to keep SpO2 89-92% -VAP bundle addressed, aspiration precautions HOB >40 -Lung protective strategies -Avoid benzodiazepines to reduce the possibility of delirium -SAT and SBT now -Accucheck with glycemic control. Avoid hypoglycemia -Conservative fluid therapy as tolerated by his renal function and hemodynamics -VTE prophylaxis, if he is not liberated from MVS will address Stress ulcer prop hylaxis -Mobility, off loading and frequent turning per facility protocol to avoid pressure ulcers -Trend temperature curve and WCC. Stop antibiotics and monitor off antibiotics -Counseling on substance abuse when he is liberated from MVS -Start on D5 NS, and if unable to extubate will start tube feed -Discussed with hospital medicine service CONDITION: CRITICAL PROGNOSIS: GUARDED CODE STATUS: FULL CODE The high probability of a clinically significant, sudden or life threatening deterioration of the respiratory,system required my full and direct attention, intervention and personal management. The aggregate critical care time was [35] minutes. This time is in addition to time spent performing reported procedures but includes the following: [x] Data Review and interpretation [x] Patient assessment and monitoring of vital signs [x] Documentation [x] Medication orders and management
[2021-06-02 14:29] VITALS: BP 105/60
--- NOTE | 2021-06-03 07:15 | Discharge Summary ---
Providers - Providers Date of Admission: 06/01/21 15:52 Attending physician: SUSY DEGROOT MD 06/01/21 16:28 Consult to Physician [CONS] Stat Comment: Consulting Provider: RUTH HILL Physician Instructions: Reason For Exam: Acute respiratory failure, meth intoxication 06/02/21 12:21 Consult to Dietitian/Nutrition [CONS] Routine Physician Instructions: Reason For Exam: Reason for Consult: Write/Manage Tube Feeding Primary care physician: [employer] Hospitalization Condition: Stable Disposition: 07 LEFT AGAINST MEDICAL ADVICE Exam - Constitutional Vitals: Temp Pulse Resp BP Pulse Ox 97.5 F L 106 H 18 105/60 100 06/01/21 19:20 06/02/21 14:16 06/02/21 14:16 06/02/21 14:16 06/02/21 14:59 Plan Follow up with: DAVID WRIGHT MD [Primary Care Provider] - 3-5 Days
== END 2021-06-02 16:06 | disposition left against medical advice (07) | DRG 208 ==
LOC: ED 12:50 → EEVIPCON 15:52 → CC1 15:52
PROVIDERS: ADMIT Internal Medicine; ATTEND Internal Medicine
PROC: 5A1945Z Respiratory Ventilation, 24-96 Consecutive Hours (ICD-10-PCS; principal; 2021-06-01)
PROC: 0BH17EZ Insertion of Endotracheal Airway into Trachea, Via Natural or Artificial Opening (ICD-10-PCS; 2021-06-01)
PROC: 4A033R1 Measurement of Arterial Saturation, Peripheral, Percutaneous Approach (ICD-10-PCS; 2021-06-02)
DX: J96.01 Acute respiratory failure with hypoxia (principal); G92.8 Other toxic encephalopathy; R65.10 Systemic inflammatory response syndrome (SIRS) of non-infectious origin without acute organ dysfunction; F15.929 Other stimulant use, unspecified with intoxication, unspecified; F17.200 Nicotine dependence, unspecified, uncomplicated; E16.2 Hypoglycemia, unspecified; Z20.822 Contact with and (suspected) exposure to COVID-19
CPT/HCPCS: 36415; 36600; 70450; 71045; 74018; 80048; 80076; 80307; 80320; 81001; 82140; 82803; 84439; 84443; 85025; 87070; 87076; 87186; 87205; 93005; 93010; 94002; 94003; G0378; J3490; Q0162; G0480; J0330; J1200; J1630; J2060; J2250; J2704; J3486; J7030; J7050